=== PATIENT | female | born 1995 | race Caucasian/White ===

== ENCOUNTER 2019-12-08 15:02 | Inpatient (IN) | payer OTHER ==
--- NOTE | 2019-12-08 15:52 | PDOC ---
Rapid Medical Evaluation Time Seen by Provider: 12/08/19 15:50 Medical Evaluation: Allergies Allergy/AdvReac Type Severity Reaction Status Date / Time No Known Allergies Allergy Verified 12/08/19 15:49 12/08/19 15:50 Pt c/o: cp , sob, and palpitations, fatigue no travel, no sx, hx anemia Pt on brief exam: vss Pt ordered for: cbc ,ekg pt to proceed to the ED Discharge Disposition - Diagnosis Chest pain Qualifiers: Chest pain type: unspecified Qualified Code(s): R07.9 - Chest pain, unspecified - Discharge Dispostion Condition at time of disposition: Stable - Referrals - Patient Instructions - Post Discharge Activity
[2019-12-08 15:56] VITALS: BMI 42.3
[2019-12-08 16:48] LABS: BASO % 0.2 % (0-2.0); EOS % 0.6 % (0-4.5); HEMATOCRIT 30.9 % (32.4-45.2); HEMOGLOBIN 9.9 GM/dL (10.7-15.3); LYMPH % 13.3 % (8-40); MCH 23.9 pg (25.7-33.7); MEAN CELL VOLUME 74.6 fl (80-96); MEAN PLT VOLUME 9.1 fl (7.5-11.1); MONO % 9.8 % (3.8-10.2); NEUT % 76.1 % (42.8-82.8); PLATELET COUNT 267 K/MM3 (134-434); RBC 4.14 M/mm3 (3.60-5.2); WHITE BLOOD COUNT 7.5 K/mm3 (4.0-10.0)
--- NOTE | 2019-12-08 20:11 | PDOC ---
*Physical Exam - Vital Signs Last Vital Signs Temp Pulse Resp BP Pulse Ox 98.4 F 97 H 16 133/75 98 12/08/19 15:52 12/08/19 15:52 12/08/19 15:52 12/08/19 15:52 12/08/19 15:52 ED Treatment Course - LABORATORY CBC & Chemistry Diagram: 12/08/19 16:19 12/08/19 20:30 - ADDITIONAL ORDERS Additional order review: 12/08/19 16:19 RBC 4.14 MCV 74.6 L MCHC 32.0 RDW 17.0 H MPV 9.1 D Neutrophils % 76.1 Lymphocytes % 13.3 Monocytes % 9.8 D Eosinophils % 0.6 D Basophils % 0.2 Medical Decision Making - Medical Decision Making 12/08/19 20:11 Patient seen by the advanced practice provider under my direct supervision. Ancillary testing reviewed as necessary. I agree with plan as outlined by the advanced practice provider. Discharge - Discharge Information Problems reviewed: Yes Clinical Impression/Diagnosis: Chest pain Qualifiers: Chest pain type: unspecified Qualified Code(s): R07.9 - Chest pain, unspecified - Follow up/Referral - Patient Discharge Instructions - Post Discharge Activity
--- NOTE | 2019-12-08 20:32 | PDOC ---
History of Present Illness - General Chief Complaint: Chest Pain Stated Complaint: CHEST PAIN Time Seen by Provider: 12/08/19 15:50 History Source: Patient - History of Present Illness Initial Comments: 12/08/19 20:27 24 year old history rheumatoid arthritis and SLE c/o chest tightness, and shortness of breath x2 days. reports symptoms are worse with exertion, patient also reports dizziness, headache. Denies NVD, abdominal pain, urinary symptoms 12/08/19 21:58 Past History - Past Medical History Allergies/Adverse Reactions: Allergies Allergy/AdvReac Type Severity Reaction Status Date / Time No Known Allergies Allergy Verified 12/08/19 15:49 Home Medications: Ambulatory Orders Tofacitinib Citrate [Xeljanz Xr] 1 tab PO DAILY 12/08/19 COPD: No Other medical history: SLE, rheumatoid arthritis - Immunization History Immunization Up to Date: Yes - Psycho Social/Smoking Cessation Hx Smoking History: Never smoked Have you smoked in the past 12 months: No Number of Cigarettes Smoked Daily: 0 Cigars Per Day: 0 Hx Alcohol Use: No Drug/Substance Use Hx: No *Physical Exam - Vital Signs Last Vital Signs Temp Pulse Resp BP Pulse Ox 98.4 F 102 H 16 113/75 98 12/08/19 15:52 12/09/19 04:58 12/09/19 04:58 12/09/19 04:58 12/09/19 04:58 - Physical Exam General Appearance: Yes: Appropriately Dressed Respiratory/Chest: positive: Lungs Clear, Normal Breath Sounds Gastrointestinal/Abdominal: positive: Normal Bowel Sounds, Soft. negative: Tender Extremity: positive: Normal Capillary Refill, Normal Inspection, Normal Range of Motion Integumentary: positive: Normal Color, Dry, Warm Neurologic: positive: Fully Oriented, Alert, Normal Mood/Affect ED Treatment Course - LABORATORY CBC & Chemistry Diagram: 12/08/19 16:19 12/08/19 20:30 - ADDITIONAL ORDERS Additional order review: Laboratory Results 12/08/19 12/08/19 12/08/19 20:30 20:30 20:30 PT with INR INR PTT (Actin FS) D-Dimer 1537 H Sodium Potassium Chloride Carbon Dioxide Anion Gap BUN Creatinine Est GFR (CKD-EPI)AfAm Est GFR (CKD-EPI)NonAf Random Glucose Calcium Magnesium Total Bilirubin AST ALT Alkaline Phosphatase Creatine Kinase Troponin I Total Protein Albumin TSH Beta HCG, Quant Urine Color Yellow Urine Appearance Cloudy Urine pH 7.0 Ur Specific [place] 1.022 Urine Protein Negative Urine Glucose (UA) Negative Urine Ketones Negative Urine Blood Negative Urine Nitrite Negative Urine Bilirubin Negative Urine Urobilinogen 1.0 Ur Leukocyte Esterase Negative Urine HCG, Qual Positive 12/08/19 12/08/19 20:30 20:30 PT with INR 13.50 H INR 1.14 H PTT (Actin FS) 37.9 H D-Dimer Sodium 138 Potassium 4.2 Chloride 106 Carbon Dioxide 24 Anion Gap 7 L BUN 12.2 Creatinine 0.6 Est GFR (CKD-EPI)AfAm 145.80 Est GFR (CKD-EPI)NonAf 125.80 Random Glucose 77 Calcium 9.0 Magnesium 2.2 Total Bilirubin 0.4 AST 16 ALT 16 Alkaline Phosphatase 84 Creatine Kinase 29 Troponin I < 0.02 Total Protein 7.6 Albumin 3.6 TSH 0.51 Beta HCG, Quant 28.1 Urine Color Urine Appearance Urine pH Ur Specific [place] Urine Protein Urine Glucose (UA) Urine Ketones Urine Blood Urine Nitrite Urine Bilirubin Urine Urobilinogen Ur Leukocyte Esterase Urine HCG, Qual 12/08/19 16:19 RBC 4.14 MCV 74.6 L MCHC 32.0 RDW 17.0 H MPV 9.1 D Neutrophils % 76.1 Lymphocytes % 13.3 Monocytes % 9.8 D Eosinophils % 0.6 D Basophils % 0.2 - RADIOLOGY Radiology Studies Ordered: Category Date Time Status CHEST CTA [CT] Stat CT Scan 12/09/19 00:06 Taken CHEST PA & LAT [RAD] Stat Radiology 12/08/19 20:30 Completed TRANSVAGINAL ULTRASOUND US [US] Stat Ultrasound 12/08/19 23:23 Taken - Medications Given in the ED: ED Medications Discontinued Medications Generic Name Dose Route Start Last Admin Trade Name Freq PRN Reason Stop Dose Admin Acetaminophen 1,000 mg 12/08/19 21:57 12/08/19 22:11 Tylenol - PO 12/08/19 21:58 1,000 mg ONCE ONE Administration Sodium Chloride 1,000 mls @ 1,000 mls/hr 12/08/19 22:39 12/09/19 03:44 Normal Saline - IV 12/08/19 23:38 1,000 mls/hr ASDIR STA Administration Medical Decision Making - Medical Decision Making A: chest pain P: cbc cmp dimer Chest xray duoneb decadron 12/08/19 23:23 Urine positive. patient reports that she had an Nov 13, 2019 12/09/19 01:02 TVUS: IUD in satisfactory position. Endometrial stripe complex 3 mm thick. No evidence for retained products of conception. No ovarian torsion bilaterally. Color flow on the right and bilateral arterial and/or venous waveforms. 2.8 cm hemorrhagic follicle right ovary. Small physiologic free fluid cul-de-sac 12/09/19 01:31 CTA chest: No definite PE, but lower lobe subsegmental artery evaluation slightly limited by motion artifact. No aortic dissection or aneurysm. No pneumonia. Trace left pleural fluid. Small pericardial effusion 12/09/19 02:19 small pericardial effusion o CTA. with chest pain will obs for echo/ cardiology evaluation. Discharge - Discharge Information Problems reviewed: Yes Clinical Impression/Diagnosis: Chest pain Qualifiers: Chest pain type: unspecified Qualified Code(s): R07.9 - Chest pain, unspecified - Admission Yes - Follow up/Referral - Patient Discharge Instructions - Post Discharge Activity
[2019-12-08 21:36] LABS: URINE APPEARANCE CLOUDY; URINE BILIRUBIN NEGATIVE (NEGATIVE); URINE COLOR YELLOW; URINE GLUCOSE (UA) NEGATIVE (NEGATIVE); URINE KETONE NEGATIVE (NEGATIVE); URINE LEUK ESTERASE NEGATIVE (NEGATIVE); URINE NITRITE NEGATIVE (NEGATIVE); URINE PROTEIN NEGATIVE (NEGATIVE)
[2019-12-08 21:41] LABS: INR 1.14 (0.83-1.09); PROTHROMBIN TIME (PATIENT) 13.5 SEC (9.7-13.0)
[2019-12-08 21:44] LABS: ACTIVATED PTT 37.9 SECONDS (25.2-36.5)
[2019-12-08 21:57] LABS: ALBUMIN 3.6 g/dl (3.4-5.0); ALK PHOS 84 U/L (45-117); ANION GAP 7 MMOL/L (8-16); BILIRUBIN,TOTAL 0.4 mg/dL (0.2-1); BLOOD UREA NITROGEN 12.2 mg/dL (7-18); CHLORIDE 106 mmol/L (98-107); CO2 24 mmol/L (21-32); CREATININE 0.6 mg/dL (0.55-1.3); GLUCOSE,RANDOM 77 mg/dL (74-106); MAGNESIUM 2.2 mg/dL (1.8-2.4); POTASSIUM 4.2 mmol/L (3.5-5.1); SGOT/AST 16 U/L (15-37); SGPT/ALT 16 U/L (13-61); SODIUM 138 mmol/L (136-145); TOT PROT 7.6 g/dl (6.4-8.2)
[2019-12-08] MEDS ORDERED: ACETAMINOPHEN 500 MG TABLET (FP) PO ONE (21:57)
[2019-12-08] MEDS ORDERED: ACETAMINOPHEN 325 MG TABLET (FP) ONE (22:10)
[2019-12-08] MEDS ORDERED: SODIUM CHLORIDE 1,000 ML IV STA (22:39)
[2019-12-09] MEDS ORDERED: KETOROLAC TROMETHAMINE 10 MG TABLET PO PRN (03:24)
--- NOTE | 2019-12-09 03:41 | PN ---
Teaching Attending Note Name of Resident: Marin Brizuela ATTENDING PHYSICIAN STATEMENT I saw and evaluated the patient. I reviewed the resident's note and discussed the case with the resident. I agree with the resident's findings and plan as documented. SUBJECTIVE: This is a 24 year old woman with a history of RA, lupus who comes to the ED complaining of chest pain x 1-2 days associated with palpitations and SOB. She reports she gets these symptoms for 1-2 weeks every few months. She has been hospitalized twice and says evaluation both times was unremarkable. Symptoms are worse when she is lying in bed and better when she sits up and leans forward. She says that it is worse when she presses on her chest. She denies fever, chills, cough. OBJECTIVE: Vital Signs Period Temp Pulse Resp BP Sys/Spears Pulse Ox Last 24 Hr 98.4 F 97 16 133/75 98 HEART: S1S2, RRR LUNGS: Clear CHEST: (+) tenderness to palpation ABDOMEN: Obese, soft, non-tender, non-distended, normal BS EXTREMITIES: No edema Laboratory Tests 12/08/19 12/08/19 12/08/19 16:19 20:30 20:30 WBC 7.5 RBC 4.14 Hgb 9.9 L Hct 30.9 L MCV 74.6 L MCH 23.9 L D MCHC 32.0 RDW 17.0 H Plt Count 267 MPV 9.1 D Absolute Neuts (auto) 5.7 Neutrophils % 76.1 Lymphocytes % 13.3 Monocytes % 9.8 D Eosinophils % 0.6 D Basophils % 0.2 Nucleated RBC % 0 PT with INR 13.50 H INR 1.14 H PTT (Actin FS) 37.9 H D-Dimer Sodium 138 Potassium 4.2 Chloride 106 Carbon Dioxide 24 Anion Gap 7 L BUN 12.2 Creatinine 0.6 Est GFR (CKD-EPI)AfAm 145.80 Est GFR (CKD-EPI)NonAf 125.80 Random Glucose 77 Calcium 9.0 Magnesium 2.2 Total Bilirubin 0.4 AST 16 ALT 16 Alkaline Phosphatase 84 Creatine Kinase 29 Troponin I < 0.02 Total Protein 7.6 Albumin 3.6 TSH 0.51 Beta HCG, Quant 28.1 Urine Color Urine Appearance Urine pH Ur Specific [place] Urine Protein Urine Glucose (UA) Urine Ketones Urine Blood Urine Nitrite Urine Bilirubin Urine Urobilinogen Ur Leukocyte Esterase Urine HCG, Qual 12/08/19 12/08/19 12/08/19 20:30 20:30 20:30 WBC RBC Hgb Hct MCV MCH MCHC RDW Plt Count MPV Absolute Neuts (auto) Neutrophils % Lymphocytes % Monocytes % Eosinophils % Basophils % Nucleated RBC % PT with INR INR PTT (Actin FS) D-Dimer 1537 H Sodium Potassium Chloride Carbon Dioxide Anion Gap BUN Creatinine Est GFR (CKD-EPI)AfAm Est GFR (CKD-EPI)NonAf Random Glucose Calcium Magnesium Total Bilirubin AST ALT Alkaline Phosphatase Creatine Kinase Troponin I Total Protein Albumin TSH Beta HCG, Quant Urine Color Yellow Urine Appearance Cloudy Urine pH 7.0 Ur Specific [place] 1.022 Urine Protein Negative Urine Glucose (UA) Negative Urine Ketones Negative Urine Blood Negative Urine Nitrite Negative Urine Bilirubin Negative Urine Urobilinogen 1.0 Ur Leukocyte Esterase Negative Urine HCG, Qual Positive Home Medications Medication Instructions Recorded Tofacitinib Citrate [Xeljanz Xr] 1 tab PO DAILY 12/08/19 ASSESSMENT AND PLAN: This is a 24 year old woman with a history of RA, lupus who presented to the ED with chest pain, palpitations, and SOB. 1. Chest pain with palpitations and SOB - Possible musculoskeletal chest pain; possible pericarditis, myocarditis, arrhythmia secondary to SLE - Small pericardial effusion seen on CT - D-dimer elevated - no evidence of PE on chest CTA - Monitor on telemetry - Toradol as needed for pain - Echocardiogram 2. Anemia, chronic - Microcytic - Likely secondary to chronic illness, Xeljanz, possible component of iron deficiency - Check iron studies 3. RA, SLE - On Xeljanz
--- NOTE | 2019-12-09 04:04 | HP ---
CHIEF COMPLAINT: chest pain PCP: none Portfolio Director: Dr. Destinee Fraga HISTORY OF PRESENT ILLNESS: Noelle Salguero is a 24 year old female with a past medical history of rheumatoid arthritis, SLE, anemia who presents with a 1-2 day history of chest pain. Patient stated that she has been having this kind of pain on and off every couple of months and mostly it self resolves or resolves with ibuprofen. She states that now the pain is the same as it has been previously but she wanted to have it investigated at the hospital. Describes the pain as being substernal and on the left side of the chest being worse when she lays down and better when she leans forward associated with dyspnea with exertion and reproducible upon palpation. No radiation to the back, the neck or down the arm. Notes that she also has a headache with lightheadedness, chronic joint pain, chronic muscle pain, some abdominal pain. Denies cough, dizziness, focal numbness, tingling, weakness, dysuria, hematuria. Denies any new rashes, skin lesions. Denies recent travel or sick contacts. Was previously on prednisone that was tapered to 5mg dose and then she self discontinued the medication 3 months ago. Of note, recently had an 3 weeks prior and had an IUD placed. ER course was notable for: (1) Hgb 9.9, MCV 74.6, D-dimer 1537, HCG +, quantitative HCG noting between 0.1- 1 week (2) negative troponin (3) EKG--> NSR, no ST segment changes, no low voltage, no electrical alterans, QTc 451 (4) CXR--> no acute pathology IMAGING TVUS: IUD in satisfactory position. Endometrial stripe complex 3 mm thick. No evidence for retained products of conception. No ovarian torsion bilaterally. Color flow on the right and bilateral arterial and/or venous waveforms. 2.8 cm hemorrhagic follicle right ovary. Small physiologic free fluid cul-de-sac. CTA: No definite PE, but lower lobe subsegmental artery evaluation slightly limited by motion artifact. No aortic dissection or aneurysm. No pneumonia. Trace left pleural fluid. Small pericardial effusion. Recent Travel: denies PAST MEDICAL HISTORY: as above PAST SURGICAL HISTORY: Social History: Smoking: former smoker, quit several years prior Alcohol: denies Drugs: quit marijuana smoking Nov 04 2019 Allergies No Known Allergies Allergy (Verified 12/08/19 15:49) HOME MEDICATIONS: Home Medications Medication Instructions Recorded Tofacitinib Citrate [Xeljanz Xr] 1 tab PO DAILY 12/08/19 REVIEW OF SYSTEMS CONSTITUTIONAL: generalized weakness Absent: fever, chills, diaphoresis, malaise, loss of appetite, weight change HEENT: Absent: rhinorrhea, nasal congestion, throat pain, throat swelling, difficulty swallowing, visual changes CARDIOVASCULAR: chest pain (worse with reclining), lightheadedness Absent: syncope, palpitations, irregular heart rate, peripheral edema RESPIRATORY: dyspnea with exertion Absent: cough, shortness of breath, orthopnea, wheezing, stridor, GASTROINTESTINAL: abdominal pain Absent: abdominal distension, nausea, vomiting, diarrhea, constipation GENITOURINARY: Absent: dysuria, frequency, urgency, hesitancy, hematuria, flank pain, genital pain MUSCULOSKELETAL: myalgia, arthralgia Absent: joint swelling, back pain, neck pain SKIN: Absent: rash, itching, pallor HEMATOLOGIC/IMMUNOLOGIC: Absent: easy bleeding, easy bruising, lymphadenopathy, frequent infections ENDOCRINE: Absent: unexplained weight gain, unexplained weight loss, heat intolerance, cold intolerance NEUROLOGIC: headache Absent: focal weakness or paresthesias, dizziness, unsteady gait, seizure, mental status changes PSYCHIATRIC: Absent: anxiety, depression, suicidal or homicidal ideation, hallucinations. PHYSICAL EXAMINATION Vital Signs - 24 hr 12/08/19 15:52 Temperature 98.4 F Pulse Rate 97 H Respiratory 16 Rate Blood Pressure 133/75 O2 Sat by Pulse 98 Oximetry (%) GENERAL: Awake, alert, and fully oriented, in no acute distress. HEAD: Normal with no signs of trauma. EYES: Pupils equal, round and reactive to light, extraocular movements intact, sclera anicteric, conjunctiva clear. EARS, NOSE, THROAT: Oropharynx clear without exudates. Moist mucous membranes. NECK: Normal range of motion, supple without lymphadenopathy, JVD. LUNGS: Breath sounds equal, decreased to auscultation bilaterally likely due to body habitus. No wheezes, and no crackles. No accessory muscle use. HEART: Regular rate and rhythm, normal S1 and S2 without murmur, rub. ABDOMEN: Soft, nontender, obese, normoactive bowel sounds, no guarding, no rebound, no masses. MUSCULOSKELETAL: Normal range of motion at all joints. Mild tenderness to palpation of fingers and calfs. UPPER EXTREMITIES: 2+ pulses, warm, well-perfused. No cyanosis. No clubbing. No peripheral edema. LOWER EXTREMITIES: 2+ pulses, warm, well-perfused. No peripheral edema. NEUROLOGICAL: Cranial nerves II-XII intact. 5/5 muscle strength bilaterally upper and lower extremities. Antalgic gait. PSYCHIATRIC: Cooperative. Good eye contact. Appropriate mood and affect. SKIN: Warm, dry, normal turgor, no rashes or lesions noted, normal capillary refill. Laboratory Results - last 24 hr 12/08/19 12/08/19 12/08/19 16:19 20:30 20:30 WBC 7.5 RBC 4.14 Hgb 9.9 L Hct 30.9 L MCV 74.6 L MCH 23.9 L D MCHC 32.0 RDW 17.0 H Plt Count 267 MPV 9.1 D Absolute Neuts (auto) 5.7 Neutrophils % 76.1 Lymphocytes % 13.3 Monocytes % 9.8 D Eosinophils % 0.6 D Basophils % 0.2 Nucleated RBC % 0 PT with INR 13.50 H INR 1.14 H PTT (Actin FS) 37.9 H D-Dimer Sodium 138 Potassium 4.2 Chloride 106 Carbon Dioxide 24 Anion Gap 7 L BUN 12.2 Creatinine 0.6 Est GFR (CKD-EPI)AfAm 145.80 Est GFR (CKD-EPI)NonAf 125.80 Random Glucose 77 Calcium 9.0 Magnesium 2.2 Total Bilirubin 0.4 AST 16 ALT 16 Alkaline Phosphatase 84 Creatine Kinase 29 Troponin I < 0.02 Total Protein 7.6 Albumin 3.6 TSH 0.51 Beta HCG, Quant 28.1 Urine Color Urine Appearance Urine pH Ur Specific [place] Urine Protein Urine Glucose (UA) Urine Ketones Urine Blood Urine Nitrite Urine Bilirubin Urine Urobilinogen Ur Leukocyte Esterase Urine HCG, Qual 12/08/19 12/08/19 12/08/19 20:30 20:30 20:30 WBC RBC Hgb Hct MCV MCH MCHC RDW Plt Count MPV Absolute Neuts (auto) Neutrophils % Lymphocytes % Monocytes % Eosinophils % Basophils % Nucleated RBC % PT with INR INR PTT (Actin FS) D-Dimer 1537 H Sodium Potassium Chloride Carbon Dioxide Anion Gap BUN Creatinine Est GFR (CKD-EPI)AfAm Est GFR (CKD-EPI)NonAf Random Glucose Calcium Magnesium Total Bilirubin AST ALT Alkaline Phosphatase Creatine Kinase Troponin I Total Protein Albumin TSH Beta HCG, Quant Urine Color Yellow Urine Appearance Cloudy Urine pH 7.0 Ur Specific [place] 1.022 Urine Protein Negative Urine Glucose (UA) Negative Urine Ketones Negative Urine Blood Negative Urine Nitrite Negative Urine Bilirubin Negative Urine Urobilinogen 1.0 Ur Leukocyte Esterase Negative Urine HCG, Qual Positive EKG--> NSR, no ST segment changes, no low voltage, no electrical alterans, QTc 451 ASSESSMENT/PLAN: Noelle Salguero is a 24 year old female with a past medical history of rheumatoid arthritis, SLE, anemia admitted for chest pain in the setting of lupus and rheumatoid arthritis. Chest Pain - HEART SCORE 1 (risk factor obesity) - in the setting of lupus and rheumatoid arthritis to rule out pericarditis and/ or Iqra Sacks endocarditis - EKG as above - troponin negative, continue to trend - CTA as above - echo for investigation of pericardial effusion and cardiac pathology - lipids, A1c, TSH - toradol 10mg tid prn in setting of likely pericarditis type symptoms - will likely need outpatient cardiology follow up - can consider stress test, however low likelihood for ACS Anemia - likely anemia of chronic disease, however uses ibuprofen daily, denies melena/ bloody bowel movements - iron studies ordered 2.8 cm hemorrhagic follicle on R ovary - will need outpatient follow up with REGISTERED NURSE MATERNITY Obesity - dietary consulted Rheumatoid and SLE - continue home Xeljanz - f/u with outpatient rheum DVT PPx - Lovenox 40 mg subq daily FEN - no standing fluids - continue to monitor electrolytes and replete as necessary - NPO pending possible stress test Dispo - admit to telemetry Family Medical History Family Hx Diabetes: Mother, Father Other Family History: Aunt- lupus Visit type - Emergency Visit Emergency Visit: Yes ED Registration Date: 12/09/19 Care time: The patient presented to the Emergency Department on the above date and was hospitalized for further evaluation of their emergent condition. - New Patient This patient is new to me today: Yes Date on this admission: 12/09/19 - Critical Care Critical Care patient: No
[2019-12-09 07:00] LABS: BASO % 0.1 % (0-2.0); EOS % 0.3 % (0-4.5); HEMOGLOBIN 8.9 GM/dL (10.7-15.3); LYMPH % 13.5 % (8-40); MCH 24.3 pg (25.7-33.7); MCHC 32.9 g/dl (32.0-36.0); MEAN PLT VOLUME 8.9 fl (7.5-11.1); MONO % 7.9 % (3.8-10.2); NEUT % 78.2 % (42.8-82.8); PLATELET COUNT 216 K/MM3 (134-434); RBC 3.65 M/mm3 (3.60-5.2); RDW 17.2 % (11.6-15.6); RETICULOCYTES 0.91 % (0.5-1.5); WHITE BLOOD COUNT 7.1 K/mm3 (4.0-10.0)
[2019-12-09 07:27] LABS: ANION GAP 6 MMOL/L (8-16); CALCIUM 8.2 mg/dL (8.5-10.1); CHLORIDE 109 mmol/L (98-107); CHOLESTEROL 107 mg/dL (50-200); CO2 25 mmol/L (21-32); CREATININE 0.6 mg/dL (0.55-1.3); GLUCOSE,RANDOM 91 mg/dL (74-106); HDL CHOLESTEROL 36 mg/dL (40-60); LDL CHOLESTEROL (ONLY SJRH) 63 mg/dL (5-100); POTASSIUM 3.5 mmol/L (3.5-5.1); SODIUM 140 mmol/L (136-145); TRIGLYCERIDES 60 mg/dL (0-150)
[2019-12-09] MEDS ORDERED: ENOXAPARIN NA (PORCINE) 40 MG/0.4 ML DISP.SYRIN SQ SCH (10:00)
[2019-12-09] MEDS ORDERED: TOFACITINIB CITRATE PO SCH (10:00)
[2019-12-09] MEDS ORDERED: ENOXAPARIN NA (PORCINE) 40 MG/0.4 ML DISP.SYRIN SQ ONE (11:12)
--- NOTE | 2019-12-09 11:37 | EKG ---
Test Reason : Blood Pressure : / mmHG Vent. Rate : 100 BPM Atrial Rate : 100 BPM P-R Int : 126 ms QRS Dur : 080 ms QT Int : 350 ms P-R-T Axes : 022 003 017 degrees QTc Int : 451 ms POOR DATA QUALITY, INTERPRETATION MAY BE ADVERSELY AFFECTED NORMAL SINUS RHYTHM NORMAL ECG Confirmed by Tad Nayak MD ([id number]) on 12/09/2019 11:37:10 AM Referred By: Confirmed By:Tad Nayak MD
--- NOTE | 2019-12-09 11:38 | EKG ---
Test Reason : Blood Pressure : / mmHG Vent. Rate : 086 BPM Atrial Rate : 086 BPM P-R Int : 128 ms QRS Dur : 080 ms QT Int : 334 ms P-R-T Axes : 023 012 003 degrees QTc Int : 399 ms POOR DATA QUALITY, INTERPRETATION MAY BE ADVERSELY AFFECTED NORMAL SINUS RHYTHM POSSIBLE LEFT ATRIAL ENLARGEMENT NONSPECIFIC T WAVE ABNORMALITY ABNORMAL ECG WHEN COMPARED WITH ECG OF 25-JUL-2016 18:10, NO SIGNIFICANT CHANGE WAS FOUND Confirmed by Tad Nayak MD ([id number]) on 12/09/2019 11:38:20 AM Referred By: Confirmed By:Tad Nayak MD
[2019-12-09 11:46] VITALS: BP 134/71; PULSE 74; TEMP 98.1
--- NOTE | 2019-12-09 11:48 | ECHO ---
Name: MCKEONCHRISTO Exam:Adult Echocardiogram Study Date: 12/09/2019 11:07 AM Age: 24 yrs Height: 67 in Weight: 270 lb BSA: 2.3 m2 MMode/2D Measurements & Calculations IVSd: 0.98 cm Ao root diam: 2.8 cm LVIDd: 5.2 cm LA dimension: 3.7 cm LVIDs: 3.3 cm ACS: 1.9 cm LVPWd: 0.98 cm EDV(Teich): 127.1 ml LVOT diam: 2.2 cm ESV(Teich): 44.3 ml LVLd ap4: 8.1 cm SV(MOD-sp4): 69.0 ml EDV(MOD-sp4): 120.0 ml LVLs ap4: 6.7 cm ESV(MOD-sp4): 51.0 ml LAV (MOD-bp): 41.0 ml TAPSE: 2.3 cm RV S [place]: 12.7 cm/sec Doppler Measurements & Calculations MV E max [place]: 65.2 cm/sec Ao V2 max: 138.5 cm/sec MV A max [place]: 54.8 cm/sec Ao max P.7 mmHg MV E/A: 1.2 Ao V2 mean: 87.6 cm/sec MV dec time: 0.18 sec Ao mean P.7 mmHg Ao V2 VTI: 23.1 cm TOSHIA(I,D): 3.4 cm2 TOSHIA(V,D): 3.1 cm2 LV V1 max P.3 mmHg SV(LVOT): 77.5 ml LV V1 mean P.5 mmHg LV V1 max: 115.5 cm/sec LV V1 mean: 72.7 cm/sec LV V1 VTI: 20.7 cm TR max [place]: 229.4 cm/sec PA V2 max: 93.7 cm/sec TR max P.6 mmHg PA max P.5 mmHg PI end-d [place]: 86.9 cm/sec Med Peak E' [place]: 7.5 cm/sec Med E/e': 8.7 Lat Peak E' [place]: 14.0 cm/sec Lat E/e': 4.6 Pulm Sys [place]: 72.1 cm/sec Pulm Spears [place]: 61.7 cm/sec Pulm S/D: 1.2 Procedure A complete two-dimensional transthoracic echocardiogram was performed (2D, M-mode, Doppler and color flow Doppler). Left Ventricle The left ventricular size, thickness and function are normal. Ejection Fraction = 65%. Left Ventricul ar Filling pattern is normal for age. The left ventricular wall motion is normal. Mitral Valve The mitral valve is normal in structure and function. There is trace to mild mitral regurgitation. Tricuspid Valve The tricuspid valve is normal in structure and function. There is trace tricuspid regurgitation. Righ t ventricular systolic pressure is 26 mmhg. Assuming the RA pressure is 5 mmHg. Aortic Valve The aortic valve is normal in structure and function. Pulmonic Valve The pulmonic valve is normal in structure and function. Trace pulmonic valvular regurgitation. Interpretation Summary This degree of valvular regurgitation is within normal limits. There is no evidence of a mass or vege tation. This does not rule out endocarditis. The left ventricular size, thickness and function are normal MD Tad Nayak 12/09/2019 11:48 AM
--- NOTE | 2019-12-09 13:08 | DS ---
Physical Exam: SUBJECTIVE: Patient seen and examined. Says she still has chest pain when laying down and with movement. Gets worse with palpation of chest. denies sob, fevers, chills, nausea, vomiting. OBJECTIVE: Vital Signs Period Temp Pulse Resp BP Sys/Spears Pulse Ox Last 24 Hr 98.1 F-98.4 F 74-102 16-18 113-141/71-130 98-100 PHYSICAL EXAM GENERAL: a/o x 3, in nad HEAD: Normal with no signs of trauma. EYES: PERRL, extraocular movements intact, sclera anicteric, conjunctiva clear. ENT: oropharynx clear without exudates, moist mucous membranes. NECK: supple. Chest: tender to palpation LUNGS: Breath sounds equal, clear to auscultation bilaterally HEART: RRR, no MGR ABDOMEN: obese, Soft, nontender, nondistended, normoactive bowel sounds EXTREMITIES: 2+ pulses, warm, well-perfused, no edema. NEUROLOGICAL: Cranial nerves II through XII grossly intact. LABS Laboratory Results - last 24 hr 12/08/19 12/08/19 12/08/19 16:19 20:30 20:30 WBC 7.5 RBC 4.14 Hgb 9.9 L Hct 30.9 L MCV 74.6 L MCH 23.9 L D MCHC 32.0 RDW 17.0 H Plt Count 267 MPV 9.1 D Absolute Neuts (auto) 5.7 Neutrophils % 76.1 Lymphocytes % 13.3 Monocytes % 9.8 D Eosinophils % 0.6 D Basophils % 0.2 Nucleated RBC % 0 ESR Retic Count PT with INR 13.50 H INR 1.14 H PTT (Actin FS) 37.9 H D-Dimer Sodium 138 Potassium 4.2 Chloride 106 Carbon Dioxide 24 Anion Gap 7 L BUN 12.2 Creatinine 0.6 Est GFR (CKD-EPI)AfAm 145.80 Est GFR (CKD-EPI)NonAf 125.80 Random Glucose 77 Hemoglobin A1c % Calcium 9.0 Magnesium 2.2 Iron TIBC Iron Saturation Unsaturated IBC Ferritin Total Bilirubin 0.4 AST 16 ALT 16 Alkaline Phosphatase 84 Creatine Kinase 29 Troponin I < 0.02 C-Reactive Protein Total Protein 7.6 Albumin 3.6 Triglycerides Cholesterol Total LDL Cholesterol HDL Cholesterol TSH 0.51 Beta HCG, Quant 28.1 Urine Color Urine Appearance Urine pH Ur Specific [place] Urine Protein Urine Glucose (UA) Urine Ketones Urine Blood Urine Nitrite Urine Bilirubin Urine Urobilinogen Ur Leukocyte Esterase Urine HCG, Qual 12/08/19 12/08/19 12/08/19 20:30 20:30 20:30 WBC RBC Hgb Hct MCV MCH MCHC RDW Plt Count MPV Absolute Neuts (auto) Neutrophils % Lymphocytes % Monocytes % Eosinophils % Basophils % Nucleated RBC % ESR Retic Count PT with INR INR PTT (Actin FS) D-Dimer 1537 H Sodium Potassium Chloride Carbon Dioxide Anion Gap BUN Creatinine Est GFR (CKD-EPI)AfAm Est GFR (CKD-EPI)NonAf Random Glucose Hemoglobin A1c % Calcium Magnesium Iron TIBC Iron Saturation Unsaturated IBC Ferritin Total Bilirubin AST ALT Alkaline Phosphatase Creatine Kinase Troponin I C-Reactive Protein Total Protein Albumin Triglycerides Cholesterol Total LDL Cholesterol HDL Cholesterol TSH Beta HCG, Quant Urine Color Yellow Urine Appearance Cloudy Urine pH 7.0 Ur Specific [place] 1.022 Urine Protein Negative Urine Glucose (UA) Negative Urine Ketones Negative Urine Blood Negative Urine Nitrite Negative Urine Bilirubin Negative Urine Urobilinogen 1.0 Ur Leukocyte Esterase Negative Urine HCG, Qual Positive 12/09/19 12/09/19 12/09/19 05:40 05:40 05:40 WBC 7.1 RBC 3.65 Hgb 8.9 L Hct 27.0 L MCV 74.0 L MCH 24.3 L MCHC 32.9 RDW 17.2 H Plt Count 216 MPV 8.9 Absolute Neuts (auto) 5.6 Neutrophils % 78.2 Lymphocytes % 13.5 Monocytes % 7.9 Eosinophils % 0.3 Basophils % 0.1 Nucleated RBC % 0 ESR Retic Count 0.91 PT with INR INR PTT (Actin FS) D-Dimer Sodium 140 Potassium 3.5 Chloride 109 H Carbon Dioxide 25 Anion Gap 6 L BUN 9.0 Creatinine 0.6 Est GFR (CKD-EPI)AfAm 145.80 Est GFR (CKD-EPI)NonAf 125.80 Random Glucose 91 Hemoglobin A1c % 4.5 Calcium 8.2 L Magnesium 2.0 Iron TIBC Iron Saturation Unsaturated IBC Ferritin Total Bilirubin AST ALT Alkaline Phosphatase Creatine Kinase Troponin I < 0.02 C-Reactive Protein Total Protein Albumin Triglycerides 60 Cholesterol 107 Total LDL Cholesterol 63 HDL Cholesterol 36 L TSH 1.41 Beta HCG, Quant Urine Color Urine Appearance Urine pH Ur Specific [place] Urine Protein Urine Glucose (UA) Urine Ketones Urine Blood Urine Nitrite Urine Bilirubin Urine Urobilinogen Ur Leukocyte Esterase Urine HCG, Qual 12/09/19 12/09/19 12/09/19 05:40 11:55 11:55 WBC RBC Hgb Hct MCV MCH MCHC RDW Plt Count MPV Absolute Neuts (auto) Neutrophils % Lymphocytes % Monocytes % Eosinophils % Basophils % Nucleated RBC % ESR 34 H Retic Count PT with INR INR PTT (Actin FS) D-Dimer Sodium Potassium Chloride Carbon Dioxide Anion Gap BUN Creatinine Est GFR (CKD-EPI)AfAm Est GFR (CKD-EPI)NonAf Random Glucose Hemoglobin A1c % Calcium Magnesium Iron 7 L TIBC 266 Iron Saturation 2 L Unsaturated IBC 259 Ferritin 65.3 Total Bilirubin AST ALT Alkaline Phosphatase Creatine Kinase Troponin I C-Reactive Protein 9.6 H Total Protein Albumin Triglycerides Cholesterol Total LDL Cholesterol HDL Cholesterol TSH Beta HCG, Quant Urine Color Urine Appearance Urine pH Ur Specific [place] Urine Protein Urine Glucose (UA) Urine Ketones Urine Blood Urine Nitrite Urine Bilirubin Urine Urobilinogen Ur Leukocyte Esterase Urine HCG, Qual HOSPITAL COURSE: Date of Admission:12/09/19 This is a 24 year old woman with a history of RA, lupus who presented to the ED with chest pain, palpitations, and SOB. #Chest pain with palpitations and SOB - Possible musculoskeletal chest pain - Small pericardial effusion seen on CT, otherwise no PE - D-dimer elevated - no evidence of PE on chest CTA - was monitored on tele - Toradol as needed for pain - Echocardiogram- unremarkable -EKG unremarkable -can take ibuprofen as needed for pain until seen by pcp. #Anemia, chronic - Microcytic - Likely secondary to chronic illness, Xeljanz, possible component of iron deficiency #RA, SLE - On Xeljanz Agrees to follow up with her pcp within 1 week. Date of Discharge: 12/09/19 Minutes to complete discharge: 35 Discharge Summary Problems reviewed: Yes Reason For Visit: CHEST PAIN Current Active Problems Chest pain (Acute) Condition: Stable - Instructions Diet, Activity, Other Instructions: You were here because of chest pain. The EKG and Echocardiogram were normal. You will need to follow up with your primary care doctor in 1 week. If you develop worsening of chest pain, shortness of breath, nausea, vomiting, fevers, chills, then go to your nearest emergency department. Referrals: Leonard Aguirre MD [Staff Physician] - 1 Week Disposition: HOME - Home Medications Comprehensive Discharge Medication List: Ambulatory Orders Tofacitinib Citrate [Xeljanz Xr] 1 tab PO DAILY 12/08/19 This patient is new to me today: Yes Date on this admission: 12/09/19 Emergency Visit: Yes ED Registration Date: 12/09/19 Care time: The patient presented to the Emergency Department on the above date and was hospitalized for further evaluation of their emergent condition. Critical Care patient: No - Discharge Referral Referred to [facility] Med [facility].C[facility] No ATTENDING PHYSICIAN STATEMENT I saw and evaluated the patient. I reviewed the resident's note and discussed the case with the resident. I agree with the resident's findings and plan as documented. SUBJECTIVE: OBJECTIVE: ASSESSMENT AND PLAN:
--- NOTE | 2019-12-09 14:47 | PN ---
Teaching Attending Note Name of Resident: Rolando Tran ATTENDING PHYSICIAN STATEMENT I saw and evaluated the patient. I reviewed the resident's note and discussed the case with the resident. I agree with the resident's findings and plan as documented. SUBJECTIVE: seen and examined at bedside in ED. Feeling ok, chest pain with deep inspiration and with palpation and position changes. OBJECTIVE: Vital Signs - 24 hr 12/08/19 12/09/19 12/09/19 15:52 04:58 06:38 Temperature 98.4 F Pulse Rate 97 H Pulse Rate [ 102 H 78 Left] Respiratory 16 16 18 Rate Blood Pressure 133/75 Blood Pressure 113/75 141/130 H [Left Arm] O2 Sat by Pulse 98 98 100 Oximetry (%) 12/09/19 12/09/19 06:39 10:00 Temperature 98.1 F Pulse Rate 74 Pulse Rate [ Left] Respiratory 18 Rate Blood Pressure 134/71 Blood Pressure [Left Arm] O2 Sat by Pulse 100 100 Oximetry (%) GENERAL: NAD HEART: S1S2, RRR LUNGS: CTA b/l, unlabored ABDOMEN: Obese, soft, non-tender, non-distended, normal BS EXTREMITIES: No edema Current Medications Enoxaparin Sodium (Lovenox -) 40 mg SQ DAILY BRYAN Last Admin: 12/09/19 12:01 Dose: 40 mg Ketorolac Tromethamine (Toradol) 10 mg PO TID PRN PRN Reason: PAIN LEVEL 6-10 Stop: 12/14/19 05:59 Last Admin: 12/09/19 12:05 Dose: 10 mg Non-Formulary Medication (Tofacitinib Citrate [Xeljanz Xr]) 1 tab PO DAILY BRYAN Abnormal Lab Results 12/08/19 12/08/19 12/08/19 16:19 20:30 20:30 Hgb 9.9 L Hct 30.9 L MCV 74.6 L MCH 23.9 L D RDW 17.0 H ESR PT with INR 13.50 H INR 1.14 H PTT (Actin FS) 37.9 H D-Dimer Chloride Anion Gap 7 L Calcium Iron Iron Saturation C-Reactive Protein HDL Cholesterol 12/08/19 12/09/19 12/09/19 20:30 05:40 05:40 Hgb 8.9 L Hct 27.0 L MCV 74.0 L MCH 24.3 L RDW 17.2 H ESR PT with INR INR PTT (Actin FS) D-Dimer 1537 H Chloride 109 H Anion Gap 6 L Calcium 8.2 L Iron Iron Saturation C-Reactive Protein HDL Cholesterol 36 L 12/09/19 12/09/19 12/09/19 05:40 11:55 11:55 Hgb Hct MCV MCH RDW ESR 34 H PT with INR INR PTT (Actin FS) D-Dimer Chloride Anion Gap Calcium Iron 7 L Iron Saturation 2 L C-Reactive Protein 9.6 H HDL Cholesterol all imaging reports reviewed ASSESSMENT AND PLAN: 24 year old woman with a history of RA, lupus who presented to the ED with chest pain, palpitations, and SOB. 1. Pleuritic chest pain -CT scan with small effusion -2decho unremarkable -no PE on CTA chest -NSAIDs 2. Chronic microcytic anemia, h/h stable 3. RA/SLE on xeljanz 4. 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
== END 2019-12-09 16:13 | disposition home or self-care (01) | DRG 203 ==
LOC: JER 15:02 → JERBED 12-09 02:23 → OBSVTOIN 12-09 03:20
PROVIDERS: ADMIT Internal Medicine; ATTEND Internal Medicine
DX: R07.89 Other chest pain (principal); M32.9 Systemic lupus erythematosus, unspecified; Z68.41 Body mass index [BMI] 40.0-44.9, adult; I31.3 Pericardial effusion (noninflammatory); D50.9 Iron deficiency anemia, unspecified; M06.9 Rheumatoid arthritis, unspecified; R00.2 Palpitations; E66.9 Obesity, unspecified
CPT/HCPCS: 36415; 71046-TC-FY; 71275-TC; 76830-TC; 80048; 80053; 80061; 81003; 82550; 82728; 83036; 83540; 83550; 83721; 83735; 84443; 84466; 84484; 84702; 84703; 85025; 85044; 85379; 85610; 85651; 85730; 86140; 93005; 93010; 93306-TC; 99285-25; G0378; J7030